=== PATIENT | female | born 1940 | race Caucasian/White ===

== ENCOUNTER 2023-12-04 16:34 | Emergency (ER) | payer SELFPAY ==
[2023-12-04 16:38] VITALS: BP 114/49; BMI 18.8
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
[2023-12-04 19:18] VITALS: BP 135/50
== END 2023-12-04 19:18 | disposition home or self-care (01) ==
LOC: EMR 16:34
PROVIDERS: EMERGENCY PHYSICIAN Emergency Medicine; FAMILY PHYSICIAN Family Medicine
DX: S06.0X0A Concussion without loss of consciousness, initial encounter (principal); V49.50XA Passenger injured in collision with unspecified motor vehicles in traffic accident, initial encounter; Y92.410 Unspecified street and highway as the place of occurrence of the external cause; I10 Essential (primary) hypertension; E78.00 Pure hypercholesterolemia, unspecified; K58.9 Irritable bowel syndrome, unspecified; Z79.02 Long term (current) use of antithrombotics/antiplatelets; Z86.73 Personal history of transient ischemic attack (TIA), and cerebral infarction without residual deficits; Z90.49 Acquired absence of other specified parts of digestive tract
CPT/HCPCS: 99284; 70450

== ENCOUNTER → 2024-10-16 10:48 | Outpatient (REF) | payer MEDICARE, OTHER, SELFPAY | LOC: MRI 3T 10:48 | PROVIDERS: ATTENDING PHYSICIAN Family Medicine | DX: M54.16 Radiculopathy, lumbar region (principal) | CPT/HCPCS: 72148 ==

== ENCOUNTER 2025-04-05 12:44 | Emergency (ER) | payer MEDICARE, OTHER, SELFPAY ==
[2025-04-05 12:51] VITALS: BP 150/69
[2025-04-05 13:35] LABS: Hematocrit 32.7 % (37.0-47.0); Hemoglobin 11.4 g/dL (12.0-16.0); Mean Corp Hgb Conc. 34.9 g/dL (33.0-37.0); Mean Corpuscular Volume 89.6 fL (81.0-99.0); Nucleated Red Blood Cells % 0 %; Platelet Count 193 10^3/uL (130-400); Red Cell Dist. Width 12.4 % (11.5-14.5)
[2025-04-05 13:54] LABS: ALT (SGPT) 18 U/L (0-35); AST (SGOT) 21 U/L (14-36); Albumin 4.5 g/dl (3.5-5.0); Alkaline Phosphatase 48 U/L (38-126); Blood Urea Nitrogen 15 mg/dl (7-17); Calcium 9.3 mg/dl (8.4-10.2); Carbon Dioxide 26 mmol/L (22-30); Chloride 103 mmol/L (98-107); Glucose 101 mg/dl (70-99); Potassium 4.3 mmol/L (3.5-5.1); Sodium 134 mmol/L (135-145); Total Protein 7.5 g/dl (6.3-8.2); eGFR > 60.00
[2025-04-05 16:20] VITALS: BP 148/64
--- NOTE | 2025-04-05 16:26 | ED.GENMED ---
History of Present Illness
General
Chief Complaint: Headache
Source: patient
Exam Limitations: none
Time Seen by Provider: 04/05/25 16:24
Nursing documentation reviewed up to this point in time: agreed with
History of Present Illness
History of Present Illness:
Patient is an 85-year-old female with past history of TIA x3, hypertension, hyperlipidemia who presents to the emergency department after episode of left-sided head pressure occurring earlier today. She states that earlier this morning she had a
gradual onset heaviness sensation in the left side of her head which extended down to her neck. She also reports associated blurry vision/difficulty concentrating in her left eye only.
Symptoms persisted for less than two hours and then resolved.
She denies any associated headache, nausea/vomiting, dizziness, ataxia. She denies any double vision.
Patient denies any recent falls or trauma.
No history of similar symptoms.
Past History
Past History
ED Past Medical History: CVA, HTN, Hypercholesterolemia and Other (Bowel obstruction/IBS)
ED Past Surgical History: Appendectomy and Cholecystectomy
Social History
Tobacco: Non-smoker
Alcohol: None
Drug: None
Personal: Single
Living: assisted living
Review of Systems
Review of Systems
Allergies reviewed?: Yes
All Other Systems: ROS reviewed and negative except as documented in HPI and ROS
Phy Exam
Physical Exam
Physical Exam:
Vitals: Hypertensive, otherwise vital signs stable. Afebrile
General: Patient is well appearing, no acute distress
Skin: Warm and dry, no rashes or lesions
Head: Normocephalic, atraumatic. No temporal tenderness bilaterally.
Eyes: Sclera nonicteric and clear. Pupils equal round and reactive to light bilaterally. EOMs intact. No nystagmus. Ocular pressure 14 R, 11L
Throat: Protecting airway
Neck: Normal ROM, no cervical spine tenderness, no meningismus. No tenderness overlying carotid artery bilaterally.
Cardiac: Regular rate and rhythm, no murmurs.
Pulm: Normal respiratory effort, no wheezes, rales, rhonchi heard on exam
.
Abdomen: No abdominal tenderness.
Extremities: No evidence of cyanosis or edema. Strength 5/5 in bilateral upper and lower extremities.
Neuro: AAOx3. CN II-XII grossly intact on examination. No facial droop or asymmetry. No focal neurologic deficits.
Psychiatric: Normal affect.
Course
Orders/Labs/Results
Orders:
Orders
04/05/25 13:22
C-Reactive Protein Urgent
Comment: ADD ON
Complete Blood Count/With Diff Urgent
Comprehensive Metabolic Panel Urgent
Erythrocyte Sed Rate Urgent
Comment: ADD ON
04/05/25 16:51
Visual Acuity- Treatment ONCE
04/05/25 16:52
Add On- LAB Urgent
Tests Added?: esr/crp
04/05/25 17:12
CT Head W/o Iv Contrast Urgent
Comment:
Reason For Exam: Left sided headache
Abnormal Lab Results
04/05/25
13:22
RBC 3.65 L 10^6/uL
(4.20-5.40)
Hgb 11.4 L g/dL
(12.0-16.0)
Hct 32.7 L %
(37.0-47.0)
MCH 31.2 H pg
(27.0-31.0)
ESR 31 H mm/hour
(0-20)
Sodium 134 L mmol/L
(135-145)
Glucose 101 H mg/dl
(70-99)
04/05/25 13:22
04/05/25 13:22
Vital Signs
Initial and Last Documented VS:
Initial Vital Signs
Temp Pulse Resp BP Pulse Ox
97.7 F 73 16 150/69 98
04/05/25 12:51 07/09/25 12:51 04/05/25 12:51 04/05/25 12:51 04/05/25 12:51
Last Documented Vital Signs
Temp Pulse Resp BP Pulse Ox
97.7 F 73 18 141/73 100
04/05/25 12:51 04/05/25 17:46 04/05/25 17:46 04/05/25 17:46 04/05/25 17:46
MDM/Problems Addressed
Differential Diagnosis Includes:
Not limited to: migraine headache, tension headache, viral illness, acute dehydration, intracranial hemorrhage, etc
MDM/Problems Addressed:
85-year-old female with someone atypical left sided headache, which has resolved prior to my evaluation. This was associated with mild blurriness in left eye however no loss of vision. She has no history of migraines or similar headaches. Patients
vital signs are as above. On exam � patient very well appearing, in no apparent distress. She is alert and oriented without any focal neurologic deficits. She has normal ocular pressures bilaterally and normal visual acuity. Cardio/pulmonary
assessment unremarkable.
Differential broad. Symptoms consistent with migraine headache however somewhat atypical as patient has no prior history of this. Do not suspect acute glaucoma given normal ocular pressures. Much lower suspicion for giant cell arteritis however will
add on inflammatory marker. Will check CT scan and basic labs.
Update: labs reviewed without any clinically significant abnormalities. ESR mildly elevated however CRP normal. At this point do not suspect giant cell arteritis. CT scan without acute findings.
Patient has remained asymptomatic since arrival to emergency department. Symptoms may have been related to a migraine or dehydration. No evidence of acute emergent process today. Patient and patient�s daughter very eager for discharge. Feel stable
for discharge home with continued close monitoring and primary care/neurology follow up. Very strict return precautions discussed.
Chronic conditions affecting care:
HTN
Acute Exacerbation and/or Progression of Chronic Illness:
Acutely hypertensive
*Radiology
Radiology exam reviewed: radiology read reviewed
*Pulse Oximetry
SaO2: 100
Oxygen Mode of Delivery: Room air
Patient hypoxic: no
*EKG
Interpreted by ED Provider?: NA
*Manager Social Work Interpretation
Rate: Manager Social Work- N/A
*Critical Care Note
Total Time (30-74mins, 75-104mins- exclusive of procedures): Not Applicable
Data Reviewed
Review of Other/Old Records Reveals: Radiology Studies (Normal CTA head/neck in 2021)
Source: previous radiology exam
ED Attending Note
-
Portions of this chart may have been created with voice recognition software.� Occasional wrong word or��sound alike� substitutions may have occurred due to the inherent limitations of voice recognition software.
Discharge Plan
Departure
Patient Disposition: Home (Routine Discharge)
Date of Disposition: 04/05/25
Time of Disposition: 19:38
Patient with high blood pressure during this ER visit?: Yes
Condition: Good
Discharge Problem:
Headache
Instructions: Headache, Adult (DC), BLOOD PRESSURE
Prescriptions:
No Action
latanoprost 0.005 % Drops
1 drp BOTH EYES HS
atorvastatin 40 mg Tablet
40 mg PO QPM
pilocarpine HCl 5 mg Tablet
5 mg PO MEALS
lidocaine 4 % Adhesive Patch,Medicated
1 patch TOPICAL DAILY
valsartan 80 mg Tablet
80 mg PO DAILY
aspirin 81 mg Tablet,Delayed Release (Dr/Ec)
81 mg PO DAILY
levothyroxine 50 mcg Tablet
50 mcg PO DAILY AT 0700
pramipexole 0.25 mg Tablet
0.25 mg PO HS
gabapentin 300 mg Capsule
300 mg PO TID@0800,1200,1900
Patient Comments:
with [id number]
gabapentin 100 mg Capsule
100 mg PO TID@0800,1200,1900
Patient Comments:
04/29/22 with [id number]
escitalopram oxalate [Lexapro] 20 mg Tablet
20 mg PO DAILY
cholecalciferol (vitamin D3) 25 mcg (1,000 unit) Tablet
25 mcg PO DAILY@1230
clopidogrel 75 mg Tablet
75 mg PO DAILY 20 Days Qty: 20 0RF
Referrals:
Justin Cueva MD [Family Provider, [facility]] - Follow up in 5-7 days
Activity Restrictions/Additional Instructions:
RETURN TO THE EMERGENCY DEPARTMENT FOR ANY FEVERS, HEADACHE OR NECK PAIN, CHANGES IN VISION, CHANGES IN MENTAL STATUS, NUMBNESS/TINGLING OR WEAKNESS IN EXTREMITIES, ANY OTHER NEUROLOGIC SYMPTOMS, OR ANY OTHER CONCERNS
- Discussed�your headache and visual changes resolved without intervention while the emergency department. Your eye pressures were normal. Your lab work showed a mild elevation in your ESR however otherwise no acute abnormalities. Your CT scan
showed no acute findings.
- We are unsure the exact cause of your symptoms today. Please stay well-hydrated. Take Tylenol as needed for pain. Continue to take all medications as prescribed.
- Follow-up with primary care and neurology for further evaluation/management to ensure that your symptoms improve
Monitor your symptoms closely and return to the emergency department with any acute worsening/new symptoms or any other concerns
Interventions
Interventions:
*Risk Screen - Suicide Last Done: 04/05/25 12:51
*General Assessment Last Done: 04/05/25 12:51
*Neglect/Abuse Screening Last Done: 04/05/25 12:51
*ED- Fall Risk Assessment Last Done: 04/05/25 16:20
*ED COVID-19 Vaccine History Last Done: 04/05/25 16:20
*Nursing Disposition Last Done: 04/05/25 19:41
ED- Neurological Assessment Last Done: 04/05/25 16:20
Discharge Date and Time
Discharge Date/Time: 04/05/25 19:41
Print Language: [place]
[2025-04-05 17:32] LABS: C-Reactive Protein < 5.00 mg/L (0.0-10.00)
[2025-04-05 17:46] VITALS: BP 141/73
== END 2025-04-05 19:41 | disposition home or self-care (01) ==
LOC: EMR 12:44
PROVIDERS: Student in an Organized Health Care Education/Training Program; EMERGENCY PHYSICIAN Emergency Medicine; FAMILY PHYSICIAN Family Medicine
DX: R51.9 Headache, unspecified (principal); I10 Essential (primary) hypertension; E78.00 Pure hypercholesterolemia, unspecified; K58.9 Irritable bowel syndrome, unspecified; Z86.73 Personal history of transient ischemic attack (TIA), and cerebral infarction without residual deficits; Z90.49 Acquired absence of other specified parts of digestive tract
CPT/HCPCS: 99284; 70450; 80053; 85025; 85652; 86140

== ENCOUNTER → 2025-07-28 18:00 | Outpatient (REF) | payer MEDICARE, OTHER, SELFPAY | LOC: MRI 3T 18:00 | PROVIDERS: ATTENDING PHYSICIAN Nurse Practitioner Adult Health; FAMILY PHYSICIAN Family Medicine | DX: Z86.73 Personal history of transient ischemic attack (TIA), and cerebral infarction without residual deficits (principal) | CPT/HCPCS: 70553; A9575 ==